=== PATIENT | male | born 1995 | race African-American/Black ===

== ENCOUNTER 2018-02-28 10:52 | Emergency (ER) | payer OTHER ==
[~2018-02-28] VITALS: Ht 167.6 cm; Wt 81.6 kg
[2018-02-28] MEDS ORDERED: BARIUM SULFATE 340 GM ONE (12:46)
--- NOTE | 2018-02-28 14:17 | NUR ---
MNSE COMPLETED, PT D/C'D HOME. ACI GIVEN.
[2018-02-28 14:19] VITALS: BP 109/78
[2018-02-28] MEDS ORDERED: KETOROLAC TROMETHAMINE 30 MG INJ IVP ONE (14:30)
== END 2018-02-28 14:22 | disposition home or self-care (01) ==
LOC: ER 10:52
DX: T17.208A Unspecified foreign body in pharynx causing other injury, initial encounter (principal); J45.909 Unspecified asthma, uncomplicated
CPT/HCPCS: 70360; 74220; A4663; Q9967